=== PATIENT | male | born 1965 | race Caucasian/White ===

== ENCOUNTER → 2019-04-30 09:57 | Outpatient (CLI) | payer OTHER, SELFPAY ==
--- NOTE | 2019-04-30 15:51 | PM.TREADMILL ---
Cardiac Stress Test Report Referral & Results Date Patient Seen: 04/30/19 Time Patient Seen: 15:00 Requesting provider: Holly Delaney Indication: Chest pain Rest ECG: NSR Procedure Note: Today following both written and verbal informed consent the patient was exercised according to a standard Baltazar protocol patient went for a total of 9 minutes 12 seconds achieving a maximum heart rate of 150 maximum systolic blood pressure of 200. This is approximately 10.1 METS. Exercise was terminated at this point because of fatigue. Patient was also given Cardiolite through a previously started Hep-Lock IV by the non licensed nuclear equipment operator approximately 1 minute prior to the cessation of exercise. Normal sinus rhythm throughout. Complained of chest pressure and shortness of breath. Exercise capacity age-appropriate on sedentary scale. Rare PVCs. Minimal ST deviation in multiple leads that resolved with rest. Impression: Low probability for ischemia. Montgomery treadmill score of 5 predicts 97% chance of 10 year survival. Will await perfusion imaging. Please note: Actual ECG tracings can be found in the PACS system.
--- NOTE | 2019-04-30 15:54 | P.PCN_ITS ---
Cardiac Stress Test Report Referral & Results Date Patient Seen: 04/30/19 Time Patient Seen: 15:00 Requesting provider: Holly Delaney Indication: Chest pain Rest ECG: NSR Procedure Note: Today following both written and verbal informed consent the patient was exercised according to a standard Baltazar protocol patient went for a total of 9 minutes 12 seconds achieving a maximum heart rate of 150 maximum systolic blood pressure of 200. This is approximately 10.1 METS. Exercise was terminated at this point because of fatigue. Patient was also given Cardiolite through a previously started Hep-Lock IV by the automation engineering technician approximately 1 minute prior to the cessation of exercise. Normal sinus rhythm throughout. Complained of chest pressure and shortness of breath. Exercise capacity age-appropriate on sedentary scale. Rare PVCs. Minimal ST deviation in multiple leads that resolved with rest. Impression: Low probability for ischemia. Montgomery treadmill score of 5 predicts 97% chance of 10 year survival. Will await perfusion imaging. Please note: Actual ECG tracings can be found in the PACS system.
--- NOTE | 2019-04-30 17:47 | DI.NM.S_ITS ---
DATE OF SERVICE: 04/30/2019 PROCEDURE: Exercise perfusion study. INDICATIONS: Chest pain, dyspnea on exertion, hypertension. RADIOPHARMACEUTICAL: 25.1 mCi technetium-99m Myoview IV was injected at stress and 16.2 mCi technetium-99m Myoview IV was injected at rest. CARDIAC STRESS: Patient underwent exercise perfusion study under the supervision of an attending staff. Patient walked on Baltazar protocol for 9 minutes 12 seconds and achieved 89% of target heart rate. Baseline blood pressure 130/90. Peak blood pressure 200/90. Maximum heart rate 150 bpm. Patient achieved 10.1 METs of workload. Functional aerobic impairment positive 5%. Had some shortness of breath and chest discomfort. Baseline EKG revealed sinus rhythm. Stress EKG did not reveal any convincing ischemic changes. No significant arrhythmias. RAW DATA: There is increased subdiaphragmatic activity. GATED STUDY: Resting LV ejection fraction 68 and stress LV ejection fraction 71%. I don't see any obvious wall motion abnormalities. Resting end-diastolic volume is 148 mL. No transient ischemic dilatation. TID ratio is 0.91, which is within normal limits. Lung/heart ratio is 0.35, which is within normal limits. MYOCARDIAL PERFUSION SCAN: Stress supine, resting supine, and stress prone images were compared to each other. Stress and resting supine images revealed small-sized mildly decreased perfusion of basal inferior wall and minimally decreased perfusion of inferior apex which got resolved during prone images suggestive of tissue attenuation artifact. I don't see any convincing significant perfusion defect in perfusion scan. CONCLUSION: I will call this study likely normal myocardial perfusion study with evidence of diaphragmatic tissue attenuation which got resolved during prone images. Patient has preserved left ventricular (LV) function. He walked on Baltazar protocol for 9 minutes and 12 seconds, achieved 10.1 METs of workload. Target heart rate achieved 89%. No convincing ischemic changes. No transient ischemic dilatation. No significant arrhythmias. Patient had dyspnea and chest discomfort. As far as perfusion scan is concerned, this is a low-risk myocardial perfusion scan. Consider workup to rule out pulmonary etiology of shortness of breath and chest tightness. Kyle Caputo - CAROL/mani/ab doc#: [id number]/job#: [id number] dd: 04/30/2019 16:41:00 dt: 04/30/2019 17:19:00 DICTATING MD/COPIES TO: Cuong Dotson MD COPIES MNE: KLAUDIA
== END ==
PROVIDERS: Family Provider Physician Assistant; PCP Physician Assistant; Visit Provider Internal Medicine
DX: R07.9 Chest pain, unspecified (principal); R06.00 Dyspnea, unspecified; I10 Essential (primary) hypertension; R06.02 Shortness of breath
CPT/HCPCS: 78452; 93016; 93017; 93018; A9502

== ENCOUNTER → 2020-04-12 16:21 | Outpatient (ROUT) | payer OTHER, SELFPAY ==
[2020-04-12 16:51] LABS: Add Manual Diff / Slide Review NO; Basophils Absolute Auto 0 /uL (0-100); Basophils Percent Auto 0.4 % (0-2); Eosinophils Absolute Auto 100 /uL (0-450); Eosinophils Percent Auto 1.3 % (2-4); Hematocrit 40.7 % (41-53); Hemoglobin 13.7 g/dL (13.5-17.5); Lymphocytes Absolute Auto 1400 /uL (1100-4500); Lymphocytes Percent Auto 30.9 % (25-40); Mean Corpuscular HGB Conc 33.7 % (30-36); Mean Corpuscular Hemoglobin 30.4 PG (26-34); Monocytes Absolute Auto 400 /uL (0-900); Monocytes Percent Auto 8.7 % (3-14); Neutrophils Absolute Auto 2600 /uL (1500-7000); Neutrophils Percent Auto 58.7 % (50-75); Platelet Count 216 X10^3/uL (150-400); Red Blood Cell Count 4.52 X10^6/uL (4.5-5.9); Red Cell Distribution Width 13.2 % (11.6-14.8); White Blood Cell Count 4.4 X10^3/uL (4.5-11.0)
[2020-04-12 18:00] LABS: Alanine Aminotransferase 30 IU/L (<50); Albumin 4.4 g/dL (3.5-5.0); Albumin Globulin Ratio 1.7 (1.0-2.8); Alkaline Phosphatase 70 U/L (38-126); Aspartate Aminotransferase 44 IU/L (17-59); BUN Creatinine Ratio 22.9 (6-22); Bilirubin Total 0.5 mg/dL (0.2-1.3); Blood Urea Nitrogen 16 mg/dL (9-20); Calcium 9.7 mg/dL (8.4-10.2); Carbon Dioxide 29 mmol/L (22-32); Chloride 104 mmol/L (98-107); Cholesterol 175 mg/dL (140-199); Estimated Glomerular Filt Rate > 60.0 mL/min (>60); Globulin 2.6 g/dL (1.7-4.1); Glucose 80 mg/dL (70-100); HDL Cholesterol 60 mg/dL (40-60); HEMOLYSIS < 15 (0-50); LDL Cholesterol Calculated 105 mg/dL (<100); Sodium 140 mmol/L (137-145); Triglycerides 48 mg/dL (35-150)
[2020-04-12 18:27] LABS: Prostate Specific Antigen 0.803 ng/mL (0.10-4.00)
== END ==
PROVIDERS: Family Provider Physician Assistant; PCP Physician Assistant; Visit Provider Physician Assistant
DX: Z12.5 Encounter for screening for malignant neoplasm of prostate (principal); E78.5 Hyperlipidemia, unspecified; R03.0 Elevated blood-pressure reading, without diagnosis of hypertension; M77.11 Lateral epicondylitis, right elbow
CPT/HCPCS: 80053; 80061; 84153; 85025

== ENCOUNTER → 2021-11-24 10:44 | Outpatient (CLI) | payer OTHER, SELFPAY ==
--- NOTE | 2021-11-24 12:01 | DI.RAD.S_ITS ---
PROCEDURE: XR KNEE LT 1TO2V INDICATIONS: pain in lt ankle and joints of lt foot TECHNIQUE: 3 views of the knee were acquired. COMPARISON: None. FINDINGS: Bones: No fractures or dislocations. No suspicious bony lesions. Partially visualized fixation hardware noted in the left tibia. Mild tricompartmental left knee osteoarthritis. Soft tissues: No joint effusion. No suspicious soft tissue calcifications. IMPRESSION: Mild left knee tricompartmental osteoarthritis. Dictated by: Suzie Albert MD, PhD on 11/24/2021 at 15:58 Approved by: Suzie Albert MD, PhD on 11/24/2021 at 15:58
--- NOTE | 2021-11-24 12:30 | DI.RAD.S_ITS ---
PROCEDURE: XR FOOT LT MIN 3V INDICATIONS: pain in lt ankle and joints of lt foot TECHNIQUE: 3 views of the foot were acquired. COMPARISON: [facility], , FOOT 3V LEFT, 12/25/2017, 16:34. FINDINGS: Bones: No fractures or dislocations. No suspicious bony lesions. There is varus angulation of the 1st metatarsal with compensatory valgus angulation of the 1st proximal phalanx reflecting hallux valgus. First tarsometatarsal joint space narrowing, marginal osteophyte and subchondral sclerosis noted as well. Distal tibial cortical sideplate and screws again noted. Soft tissues: No tibiotalar joint effusion. Achilles tendon appears normal. IMPRESSION: Stable hallux valgus with 1st MTP joint osteoarthritis, unchanged from the prior Approved by: Nazario Mcbride M.D. on 11/24/2021 at 11:03
--- NOTE | 2021-11-24 12:30 | DI.RAD.S_ITS ---
PROCEDURE: XR ANKLE LT MIN 3V INDICATIONS: pain in lt ankle and joints of lt foot TECHNIQUE: 3 views of the ankle were acquired. COMPARISON: [facility], , FOOT 3V LEFT, 12/25/2017, 16:34. FINDINGS: Bones: Distal tibial cortical sideplate and screws with associated healed fracture deformity noted. There is no evidence of hardware failure or loosening. Distal fibular fracture deformity with distal syndesmotic screw present as well. Ankle mortise is maintained Soft tissues: No tibiotalar joint effusion. Achilles tendon appears normal. IMPRESSION: Distal tibia fibular healed fracture deformity with associated hardware intact. No evidence of hardware failure loosening. Approved by: Nazario Mcbride M.D. on 11/24/2021 at 11:14
== END ==
PROVIDERS: Family Provider Physician Assistant; PCP Physician Assistant; Referring Provider Physician Assistant; Visit Provider Physician Assistant
DX: M25.572 Pain in left ankle and joints of left foot (principal); M17.12 Unilateral primary osteoarthritis, left knee; M20.12 Hallux valgus (acquired), left foot; M19.072 Primary osteoarthritis, left ankle and foot; S82.302S Unspecified fracture of lower end of left tibia, sequela; S82.832S Other fracture of upper and lower end of left fibula, sequela
CPT/HCPCS: 73560; 73610; 73630

== ENCOUNTER → 2022-12-25 13:48 | Outpatient (CLI) | payer OTHER, SELFPAY ==
--- NOTE | 2022-12-25 | DI.MRI.S_ITS ---
PROCEDURE: MR SHOULDER LT WO CON INDICATIONS: Pain in left shoulder TECHNIQUE: Noncontrast oblique coronal T2 fast spin echo with fat saturation, oblique sagittal T1 spin echo and T2 fast spin echo with fat saturation, axial T1 spin echo and T2 fast spin echo with fat saturation through the shoulder. COMPARISON: None. FINDINGS: Image quality: Excellent. Rotator cuff: Moderate supraspinatus and infraspinatus tendinosis. There is low-grade partial articular sided tearing of the infraspinatus tendon at the critical zone measuring 0.6 cm in anterior-posterior dimension. Additional focal low-grade intrasubstance tearing is seen at the posterior supraspinatus/anterior infraspinatus tendon footprint measuring 0.7 cm in anterior-posterior dimension. The teres minor tendon is intact. There is moderate subscapularis tendinosis. The rotator cuff musculature is normal in bulk. Bones and bursae: No acute trabecular bone injury or fracture. Chronic traction cystic changes are seen in the posterosuperior humeral head. No glenohumeral cartilage defect. Moderate degenerative changes are seen at the acromioclavicular joint with subchondral edema and small inferiorly projecting marginal osteophytes. There is a small amount of subacromial/subdeltoid bursal fluid. No significant glenohumeral joint effusion. Capsule and soft tissues: There is nondisplaced tearing of the superior labrum extending into the posterosuperior and anterosuperior labrum. The proximal biceps long head tendon is intact. There is a effacement of the normal fat signal in the rotator interval. The anterior band of the inferior glenohumeral ligament appears thickened. IMPRESSION: 1. Low-grade partial articular sided tearing of the infraspinatus tendon at the critical zone measuring 0.6 cm in anterior-posterior dimension. Additional low-grade partial intrasubstance tearing is seen at the posterior supraspinatus/anterior infraspinatus tendon insertion measuring 0.7 cm in anterior-posterior dimension. 2. Moderate rotator cuff tendinosis involving the supraspinatus, infraspinatus, subscapularis tendons. 3. Nondisplaced tearing of the superior labrum extending into the posterosuperior and anterosuperior labrum. 4. Moderate acromioclavicular joint osteoarthrosis. 5. Small subacromial/subdeltoid bursal effusion or bursitis. 6. Partial effacement of the rotator interval fat and mild thickening of the inferior glenohumeral ligament are nonspecific, but can be seen in the setting of the clinical syndrome of adhesive capsulitis. Approved by: Chuy Aguilar M.D. on 12/25/2022 at 17:01
== END ==
PROVIDERS: Referring Provider Physician Assistant; Visit Provider Physician Assistant
DX: M75.112 Incomplete rotator cuff tear or rupture of left shoulder, not specified as traumatic (principal); S43.492A Other sprain of left shoulder joint, initial encounter; M19.012 Primary osteoarthritis, left shoulder; M25.512 Pain in left shoulder
CPT/HCPCS: 73221

== ENCOUNTER → 2023-01-02 09:02 | Outpatient (CLI) | payer OTHER, SELFPAY ==
--- NOTE | 2023-01-02 20:49 | DI.NM.S_ITS ---
DATE OF SERVICE: 01/02/2023 PROCEDURE: Exercise treadmill stress and rest myocardial perfusion imaging with gating to assess ejection fraction and regional wall motion. ORDERING PROVIDER: Erendira Vega PA-C INDICATIONS: The patient is a 57-year-old hypertensive male with atypical left shoulder and arm pain radiating into the chest. EXERCISE TREADMILL TESTING: The patient was able to exercise for a total of 9 minutes and 47 seconds on a standard Baltazar protocol suggesting average exercise capacity with an SUZI of 0%. He had a normal heart rate and blood pressure response to exercise, achieving a maximum heart rate of 148 BPM (90% of his predicted maximum). He had no chest discomfort or other anginal symptoms. His resting ECG is normal and there are no significant ST-segment shifts or arrhythmias with stress. At 9 minutes and 5 seconds of exercise, at a heart rate of 144 BPM, 24.5 millicuries of technetium-99m Myoview was injected and he was imaged 10 minutes later using a gated SPECT acquisition protocol. Earlier in the day while at rest, he had been injected with 12.0 millicuries of technetium-99m Myoview, and was imaged 15 minutes later, again using a gated SPECT acquisition protocol. FINDINGS: 1. Raw data: There is good myocardial tracer uptake. The lung/heart ratio is normal at 0.37 with a normal TID ratio of 0.67. 2. Quantitated gated SPECT: Post-stress ejection fraction is estimated at 73% without any focal wall motion abnormality. The resting ejection fraction is 66% with a mildly increased end-diastolic volume of 154 mL. There is increased tracer uptake in the right ventricular free wall with mild right ventricular enlargement,suggesting a possible right ventricular overload condition but clinical correlation is recommended. 3. Myocardial perfusion imaging: Post-stress supine images show a normal myocardial perfusion pattern without any concerning perfusion defects, supported by normal perfusion imaging in the prone position. The resting images show a similar perfusion pattern although with a slight defect in the inferior wall. IMPRESSION: 1. Normal myocardial perfusion study. 2. No evidence of myocardial ischemia or previous myocardial infarction. 3. Normal left ventricular systolic function with mildly increased left ventricular size. There is increased tracer uptake in the right ventricle that appears to be mildly enlarged, suggesting a possible right ventricular overload condition but clinical correlation is recommended. 4. Average exercise capacity without angina or ECG evidence of ischemia. 5. Compared to the previous myocardial perfusion study from 04/30/2019, the patient had an identical exercise capacity and his ejection fraction was 71% with an end-diastolic volume of 148 mL and there were no perfusion defects, suggesting the absence of any significant change since the previous exam. Kyle Caputo - RAMILA/mani/nancy doc#: [id number]/job#: [id number] dd: 01/02/2023 16:40:00 dt: 01/02/2023 20:32:00 DICTATING MD/COPIES TO: Nile Preciado MD; Erendira Vega PA-C COPIES MNE: SKYLAR;
== END ==
PROVIDERS: PCP Physician Assistant; Referring Provider Physician Assistant; Visit Provider Physician Assistant
DX: R07.9 Chest pain, unspecified (principal); I10 Essential (primary) hypertension; M25.511 Pain in right shoulder; M79.601 Pain in right arm
CPT/HCPCS: 78452; 93017; A9502